=== PATIENT | male | born 1965 | race Caucasian/White ===

== ENCOUNTER 2016-11-21 10:17 | Emergency (ER) | payer OTHER ==
[~2016-11-21] VITALS: Ht 177.8 cm; Wt 138.3 kg
[2016-11-21] MEDS ORDERED: ATENOLOL25 MG PO (10:32)
[2016-11-21] MEDS ORDERED: CHLORTHALIDONE25 MG PO (10:33)
[2016-11-21] MEDS ORDERED: ZOFRAN ODT4 MG PO (12:38)
[2016-11-21] MEDS ORDERED: NORCO 5-325 TA1 EACH PO (12:38)
== END 2016-11-21 13:07 | disposition home or self-care (01) ==
LOC: ED 10:17
DX: K52.9 Noninfective gastroenteritis and colitis, unspecified (principal); I10 Essential (primary) hypertension; Z90.49 Acquired absence of other specified parts of digestive tract; Z88.5 Allergy status to narcotic agent; Z79.899 Other long term (current) drug therapy
CPT/HCPCS: 74177; 80053; 81001; 82150; 83690; 85025; 96361; 96374; 96375; 96376; 99284; J2405; J3010; J7030; Q9967